=== PATIENT | female | born 1950 | race Two or more races ===

== ENCOUNTER 2024-06-04 13:12 | Emergency (ER) | payer OTHER ==
[~2024-06-04] VITALS: Ht 149.9 cm; Wt 99.8 kg
[2024-06-04 13:33] VITALS: BP 121/65; O2SAT 98
[2024-06-04] MEDS ORDERED: ACETAMINOPHEN 500 MG GEL..CAP PO ONE (15:15)
[2024-06-04 17:25] LABS: HEMATOCRIT 40.4 % (36.0-45.00); HEMOGLOBIN 13.4 g/dL (12.0-15.00); MEAN CELL VOLUME 91.1 fL (80.00-100.00); MEAN CORPUSCULAR HEMOGLOBIN 30.2 pg (27.00-32.0); MEAN CORPUSCULAR HGB CONC 33.1 g/dl (32.0-36.0); PLATELET COUNT 247 K/uL (150-450); RED BLOOD COUNT 4.43 M/uL (4.00-6.00); RED CELL DISTRIBUTION WIDTH 14.1 % (11.5-14.5)
== END 2024-06-04 19:34 | disposition home or self-care (01) ==
LOC: ER 13:14
PROVIDERS: General Practice
DX: R53.81 Other malaise (principal); R09.81 Nasal congestion; Z20.822 Contact with and (suspected) exposure to COVID-19; E03.8 Other specified hypothyroidism; E11.9 Type 2 diabetes mellitus without complications; Z88.1 Allergy status to other antibiotic agents